=== PATIENT | male | born 1975 | race Caucasian/White ===

== ENCOUNTER 2022-04-26 22:31 | Emergency (ER) | payer BC ==
--- NOTE | 2022-04-26 22:55 | ERPHSYRPT ---
- History of Present Illness Time Seen by Provider: 04/26/22 22:49 Source: patient, family Exam Limitations: no limitations Physician History: pt reports that he passed out at daughters [place] in [place] earlier today and was worked up negative at that hospital and released. Now he notes fever and has had vomiting x1 He states he has had a cough with mild headache for days without change but noted fever this pm. and came in to be checked. He states he had a negative CXR at the other hospital. abd is soft and nontender without peritoneal signs or masses. has normal mental status. denies hitting head when he passed out earlier, and has not signs of injuries. nontender without ej stepoffs, full ROM entire spine and nontender. no pronator drift , fundi benign, visual red intact. Timing/Duration: today Fever Severity: moderate Fever Therapy FLORAL DECORATOR: none Associated Symptoms: cough, headache, nausea/vomiting Allergies/Adverse Reactions: No Known Drug Allergies Allergy (Verified 04/26/22 22:34) Home Medications: Albuterol 8 gm Mdi Hfa [Ventolin Hfa MDI] 2 puffs IH PRN 04/27/22 [ History] Amlodipine Besylate 10 mg PO DAILY 04/27/22 [History] Fluticasone/Umeclidin/Vilanter [Trelegy Ellipta 200-62.5-25] 1 puff .ROUTE DAILY 04/27/22 [History] Metoprolol Succinate 50 mg [Toprol Xl 50 MG] 50 mg PO DAILY 04/27/22 [History] Montelukast Sodium 10 mg [Singulair 10 MG] 10 mg PO DAILY 04/27/22 [History] Omalizumab [Xolair] 150 mg SQ 04/27/22 [History] Pravastatin Sodium 40 mg PO DAILY 04/27/22 [History] Sertraline HCl 50 mg [Zoloft 50 mg Tablet] 50 mg PO DAILY 04/27/22 [History] lisinopriL [Lisinopril] 20 mg PO DAILY 04/27/22 [History] Hx Tetanus, Diphtheria Vaccination/Date Given: No Hx Influenza Vaccination/Date Given: No Hx Pneumococcal Vaccination/Date Given: Yes (10 yrs ago) - Review of Systems Constitutional: Fever, No Chills Eyes: No Symptoms Ears, Nose, & Throat: No Symptoms, Nose Congestion, Sinus Drainage Respiratory: Cough, No Dyspnea Cardiac: No Chest Pain, No Edema, No Syncope Abdominal/Gastrointestinal: Nausea, Vomiting, No Abdominal Pain, No Diarrhea Genitourinary Symptoms: No Dysuria Musculoskeletal: No Back Pain, No Neck Pain, No Injury Skin: No Rash Neurological: Headache, No Dizziness, No Focal Weakness, No Sensory Changes Psychological: No Symptoms Endocrine: No Symptoms Hematologic/Lymphatic: No Symptoms Immunological/Allergic: No Symptoms All Other Systems: Reviewed and Negative - Past Medical History Pertinent Past Medical History: Yes Neurological History: No Pertinent History ENT History: No Pertinent History Cardiac History: No Pertinent History Respiratory History: Asthma, COPD, Sleep Apnea Endocrine Medical History: No Pertinent History Musculoskeletal History: No Pertinent History GI Medical History: No Pertinent History History: No Pertinent History Psycho-Social History: No Pertinent History Male Reproductive Disorders: No Pertinent History Other Medical History: sleep apnea - Past Surgical History Past Surgical History: Yes Neuro Surgical History: No Pertinent History Cardiac: No Pertinent History Respiratory: No Pertinent History Gastrointestinal: Hernia Repair Genitourinary: No Pertinent History Musculoskeletal: No Pertinent History Male Surgical History: No Pertinent History Other Surgical History: HERNIA - Social History Smoking Status: Never smoker Exposure to second hand smoke: No Drug Use: none Patient Lives Alone: No - Nursing Vital Signs Nursing Vital Signs: Initial Vital Signs Temperature 101.5 F 04/26/22 22:36 Pulse Rate 90 04/26/22 22:36 Respiratory Rate 14 04/26/22 22:36 Blood Pressure 143/81 04/26/22 22:36 O2 Sat by Pulse Oximetry 95 04/26/22 22:36 Pain Scale Pain Intensity 3 - Physical Exam General Appearance: no apparent distress, alert Eye Exam: PERRL/EOMI ENT Exam: normal ENT inspection, No pharyngeal erythema, No tonsillar exudate Neck Exam: supple, full range of motion, No meningismus Respiratory Exam: normal breath sounds, lungs clear, no respiratory distress Cardiovascular/Chest Exam: normal heart sounds, regular rate/rhythm, No murmur, No edema Gastrointestinal/Abdominal Exam: soft, non tender, no distention Rectal Exam: deferred Extremity Exam: non-tender, normal range of motion, normal inspection, normal capillary refill Neurologic Exam: alert, oriented x 3, cooperative, mold bunch trimmer II-XII nml as tested, normal mood/affect, sensation nml, No motor deficits Skin Exam: normal color, warm, dry, No rash SpO2 Interpretation: normal SpO2: 95 O2 Delivery: Room Air - Course Nursing assessment & vital signs reviewed: Yes EKG Interpreted by Me: Sinus Rhythm, NORMAL AXIS, NORMAL INTERVALS, NORMAL QRS Ordered Tests: Active Orders 24 hr Category Date Time Status Tile Mason STAT Care 04/26/22 22:59 Active EKG-ER Only STAT Care 04/26/22 22:58 Active IV Insertion STAT Care 04/26/22 22:58 Active Pulse Oximetry (ED) STAT Care 04/26/22 22:58 Active CBC W DIFF Stat Lab 04/26/22 23:02 Completed CMP Stat Lab 04/26/22 23:02 Completed Blanco Screen Stat Lab 04/26/22 23:02 Completed UA W/RFX CULTURE Stat Lab 04/26/22 Ordered Medication Summary Discontinued Medications Generic Name Dose Route Start Last Admin Trade Name Freq PRN Reason Stop Dose Admin Acetaminophen 650 mg 04/26/22 22:58 04/26/22 23:16 Acetaminophen 325 Mg Tablet PO 04/26/22 22:59 650 mg STAT STA Administration Acetaminophen Confirm 04/26/22 23:14 Acetaminophen 325 Mg Tablet Administered 04/26/22 23:15 Dose 650 mg .ROUTE .STK-MED ONE Sodium Chloride 1,000 mls @ 999 mls/hr 04/26/22 22:58 04/27/22 00:10 Sodium Chloride 0.9% 1000 Ml IV 04/26/22 23:58 Infused .Q1H1M STA Infusion Ceftriaxone Sodium/Dextrose 1 g in 50 mls @ 100 mls/hr 04/26/22 23:00 04/26/22 23:55 Rocephin 1 Gm-D5w 50 Ml Bag IV 04/26/22 23:29 Infused STAT STA Infusion Sodium Chloride Confirm 04/26/22 23:14 Sodium Chloride 0.9% 1000 Ml Administered 04/26/22 23:15 Dose 1,000 mls @ ud .ROUTE .STK-MED ONE Ceftriaxone Sodium/Dextrose Confirm 04/26/22 23:14 Rocephin 1 Gm-D5w 50 Ml Bag Administered 04/26/22 23:15 Dose 1 g in 50 mls @ ud IV .STK-MED ONE Ondansetron HCl 4 mg 04/26/22 22:58 04/26/22 23:16 Ondansetron Hcl 4 Mg/2 Ml Vial IV 04/26/22 22:59 4 mg STAT STA Administration Ondansetron HCl Confirm 04/26/22 23:14 Ondansetron Hcl 4 Mg/2 Ml Vial Administered 04/26/22 23:15 Dose 4 mg .ROUTE .STK-MED ONE Oseltamivir Phosphate 75 mg 04/27/22 00:48 Oseltamivir 75 Mg Cap PO 04/27/22 00:49 STAT ONE Lab/Rad Data: Laboratory Result Diagrams 04/26/22 23:02 04/26/22 23:02 Laboratory Results 04/26/22 04/26/22 04/26/22 Range/Units 23:26 23:26 23:02 WBC (4.0-10.5) x10^3/uL RBC (4.1-5.6) x10^6/uL Hgb (12.5-18.0) g/dL Hct (42-50) % MCV (78-100) fL MCH (26-32) pg MCHC (32-36) g/dL RDW (11.5-14.0) % Plt Count (150-450) x10^3/uL MPV (7.5-11.0) fL Gran % (36.0-66.0) % Immature Gran % (Auto) (0.00-0.4) % Nucleat RBC Rel Count (0.00-0.1) % Eos # (Auto) (0-0.5) x10^3/uL Immature Gran # (Auto) (0.00-0.03) x10^3u/L Absolute Lymphs (auto) (1.0-4.6) x10^3/uL Absolute Monos (auto) (0.0-1.3) x10^3/uL Absolute Nucleated RBC (0.00-0.01) x10^3u/L Lymphocytes % (24.0-44.0) % Monocytes % (0.0-12.0) % Eosinophils % (0.00-5.0) % Basophils % (0.0-0.4) % Absolute Granulocytes (1.4-6.9) x10^3/uL Basophils # (0-0.4) x10^3/uL Sodium (137-145) mmol/L Potassium (3.5-5.1) mmol/L Chloride (98-107) mmol/L Carbon Dioxide (22-30) mmol/L Anion Gap (5-15) MEQ/L BUN (9-20) mg/dL Creatinine (0.66-1.25) mg/dL Estimated GFR ML/MIN Glucose (74-106) mg/dL Calcium (8.4-10.2) mg/dL Total Bilirubin (0.2-1.3) mg/dL AST (17-59) U/L ALT (0-50) U/L Alkaline Phosphatase (38-126) U/L Serum Total Protein (6.3-8.2) g/dL Albumin (3.5-5.0) g/dL Monoscreen NEGATIVE (Negative) Influenza Type A Ag POSITIVE (NEGATIVE) Influenza Type B Ag NEGATIVE (NEGATIVE) RSV (PCR) NEGATIVE (Negative) SARS-CoV-2 (PCR) NEGATIVE (NEGATIVE) Group A Strep Antibody NOT DETECTED (NEGATIVE) Slides for Path Review 04/26/22 04/26/22 Range/Units 23:02 23:02 WBC 12.1 H (4.0-10.5) x10^3/uL RBC 4.43 (4.1-5.6) x10^6/uL Hgb 13.7 (12.5-18.0) g/dL Hct 40.3 L (42-50) % MCV 91.0 (78-100) fL MCH 30.9 (26-32) pg MCHC 34.0 (32-36) g/dL RDW 11.6 (11.5-14.0) % Plt Count 297 (150-450) x10^3/uL MPV 9.4 (7.5-11.0) fL Gran % 86.7 H (36.0-66.0) % Immature Gran % (Auto) 0.9 H (0.00-0.4) % Nucleat RBC Rel Count 0.0 (0.00-0.1) % Eos # (Auto) 0 (0-0.5) x10^3/uL Immature Gran # (Auto) 0.11 H (0.00-0.03) x10^3u/L Absolute Lymphs (auto) 0.42 L (1.0-4.6) x10^3/uL Absolute Monos (auto) 1.05 (0.0-1.3) x10^3/uL Absolute Nucleated RBC 0.00 (0.00-0.01) x10^3u/L Lymphocytes % 3.5 L (24.0-44.0) % Monocytes % 8.7 (0.0-12.0) % Eosinophils % 0.0 (0.00-5.0) % Basophils % 0.2 (0.0-0.4) % Absolute Granulocytes 10.46 H (1.4-6.9) x10^3/uL Basophils # 0.02 (0-0.4) x10^3/uL Sodium 134 L (137-145) mmol/L Potassium 3.7 (3.5-5.1) mmol/L Chloride 100 (98-107) mmol/L Carbon Dioxide 25 (22-30) mmol/L Anion Gap 13.6 (5-15) MEQ/L BUN 12 (9-20) mg/dL Creatinine 0.82 (0.66-1.25) mg/dL Estimated GFR > 60.0 ML/MIN Glucose 150 H (74-106) mg/dL Calcium 8.8 (8.4-10.2) mg/dL Total Bilirubin 0.80 (0.2-1.3) mg/dL AST 40 (17-59) U/L ALT 42 (0-50) U/L Alkaline Phosphatase 98 (38-126) U/L Serum Total Protein 8.0 (6.3-8.2) g/dL Albumin 4.5 (3.5-5.0) g/dL Monoscreen (Negative) Influenza Type A Ag (NEGATIVE) Influenza Type B Ag (NEGATIVE) RSV (PCR) (Negative) SARS-CoV-2 (PCR) (NEGATIVE) Group A Strep Antibody (NEGATIVE) Slides for Path Review YES - Progress Progress: improved, re-examined Progress Note: 04/27/22 00:51 [facility] reviewed and had neg w/u for syncope including head CT, and was diagnosed with cough syncope as his episode happened with a coughing spell. pt feels much better after tx in ER, and wishes to go home on outpt tx of his flu and resp secondary infection. We discussed the possibility of additional undetected pathology still evolving including cardiac , traumatic, or respiratory or other, and he and are comfortable with this plan and have the capacity to make this choice for outpt tx and are aware things may evolve. They will return or be evaluated if not improving or more symptoms present. 04/27/22 00:56 Counseled pt/family regarding: lab results, diagnosis, need for follow-up, rad results - Departure Departure Disposition: Home Clinical Impression: Influenza A, secondary respiratory infection Condition: Good Critical Care Time: No Referrals: SASHA MALLORY MD [Primary Care Provider] - Follow up/PCP as directed Instructions: Fever, Adult (DC), Flu, Adult (DC), Acute Bronchitis Additional Instructions: follow-up with your Dr this week for recheck, and return meantime if any further symptoms of concern, not improving, short of breaeth, chest pain, dizziness , further vomiting or other concerns. This is important because the flu could get worse of have complications, or there could even be additional undetected conditions even though the findings and tests are most consistent with the flu. We are also treating for secondary bacterial respiratory infection. Prescriptions: Azithromycin [Azithromycin 250 mg Pack] 250 mg PO UD #6 tablet
[2022-04-26] MEDS ORDERED: TYLENOL 325 MG PO STA (22:58)
[2022-04-26] MEDS ORDERED: Zofran 4 MG/2 ML VIAL IV STA (22:58)
[2022-04-26] MEDS ORDERED: Sodium Chloride 0.9% 1000 ML 1,000 ML IV STA (22:58)
[2022-04-26] MEDS ORDERED: ROCEPHIN 1 Gm-D5w 50 ml Bag** 1 G/50 ML IVPB IV STA (23:00)
[2022-04-26 23:04] LABS: Absolute Neutrophil Ct (ANC) 10.46 x10^3/uL (1.4-6.9); Basophil (Absolute #) 0.02 x10^3/uL (0-0.4); Eosinophil (Absolute #) 0 x10^3/uL (0-0.5); Hematocrit 40.3 % (42-50); Hemoglobin 13.7 g/dL (12.5-18.0); Lymphocyte (Absolute #) 0.42 x10^3/uL (1.0-4.6); Lymphocytes % 3.5 % (24.0-44.0); Mean Corpuscular Hemoglobin 30.9 pg (26-32); Mean Platelet Volume 9.4 fL (7.5-11.0); Monocyte (Absolute #) 1.05 x10^3/uL (0.0-1.3); Monocytes % 8.7 % (0.0-12.0); Neutrophil % 86.7 % (36.0-66.0); Platelet Count 297 x10^3/uL (150-450); Red Blood Count 4.43 x10^6/uL (4.1-5.6); Red Cell Distribution Width 11.6 % (11.5-14.0); White Blood Count 12.1 x10^3/uL (4.0-10.5)
[2022-04-26 23:11] LABS: ALBUMIN 4.5 g/dL (3.5-5.0); ALKALINE PHOSPHATASE 98 U/L (38-126); ANION GAP 13.6 MEQ/L (5-15); BLOOD UREA NITROGEN 12 mg/dL (9-20); CHLORIDE 100 mmol/L (98-107); Calcium 8.8 mg/dL (8.4-10.2); Carbon Dioxide 25 mmol/L (22-30); Creatinine 1 0.82 mg/dL (0.66-1.25); EST GLOMERULAR FILTRATION RATE > 60.0 ML/MIN; Glucose 150 mg/dL (74-106); Potassium 3.7 mmol/L (3.5-5.1); SGOT/AST 40 U/L (17-59); SGPT/ALT 42 U/L (0-50); SODIUM 134 mmol/L (137-145)
[2022-04-26] MEDS ORDERED: TYLENOL 325 MG ONE (23:14)
[2022-04-26] MEDS ORDERED: Zofran 4 MG/2 ML VIAL ONE (23:14)
[2022-04-26] MEDS ORDERED: Sodium Chloride 0.9% 1000 ML 1,000 ML ONE (23:14)
[2022-04-26] MEDS ORDERED: ROCEPHIN 1 Gm-D5w 50 ml Bag** 1 G/50 ML IVPB IV ONE (23:14)
[2022-04-27 00:04] LABS: INFLUENZA B NEGATIVE (NEGATIVE); RESPIRATORY SYNCTIAL VIRUS NEGATIVE (Negative); SARS-CoV-2 Xpert Express NEGATIVE (NEGATIVE)
[2022-04-27 00:07] LABS: INFLUENZA A POSITIVE (NEGATIVE)
[2022-04-27 00:48] LABS: Slide Review 1 YES
[2022-04-27] MEDS ORDERED: Tamiflu 75MG Capsule PO ONE ×2 (00:48→00:52)
[2022-04-27 00:56] VITALS: O2SAT 95
[2022-04-27 01:05] VITALS: BP 90/59; PULSE 88
== END 2022-04-27 01:16 | disposition home or self-care (01) ==
LOC: ED 22:31
DX: J10.1 Influenza due to other identified influenza virus with other respiratory manifestations (principal); J98.8 Other specified respiratory disorders; R55 Syncope and collapse; R50.9 Fever, unspecified; R11.2 Nausea with vomiting, unspecified; R05.9 Cough, unspecified; R51.9 Headache, unspecified; J44.9 Chronic obstructive pulmonary disease, unspecified; Z79.899 Other long term (current) drug therapy
CPT/HCPCS: 0241U; 36000; 36415; 80053; 85025; 86308; 87651; 93005; 93041; 94760; 96360; 96365; 96374; 99284; J0696; J2405; A9270-GY

== ENCOUNTER 2024-09-19 10:53 | Day surgery (SDC) | payer BC ==
--- NOTE | 2024-09-19 07:38 | HP ---
HISTORY AND PHYSICAL HISTORY OF PRESENT ILLNESS: Patient with some right upper quadrant pain. Ultrasound showed cholelithiasis. PAST MEDICAL HISTORY: Hypertension, hyperlipidemia, depression, asthma. HOME MEDICATIONS: Xolair, also on lisinopril, pravastatin, amlodipine, Singulair, metoprolol, sertraline, ProAir RespiClick as well as Trelegy Ellipta. ALLERGIES: No known drug allergies. PAST SURGICAL HISTORY: Right inguinal hernia repair. SOCIAL HISTORY: No smoking. Occasional alcohol use. FAMILY HISTORY: Diabetes. REVIEW OF SYSTEMS: Twelve systems reviewed. Pertinent for all the above as mentioned Past Medical History and History of Present Illness. No current chest pain or palpitations. Other systems negative or noncontributory as above and per preadmission questionnaire. PHYSICAL EXAMINATION: GENERAL: Height 6 feet 1 inch. BMI 39.58. No acute distress. HEENT: Sclerae anicteric. Extraocular movements are intact. NECK: No JVD. CARDIOVASCULAR: Regular rate and rhythm. RESPIRATORY: Equal excursion. Nonlabored breathing. ABDOMEN: Soft. SKIN: Dry. EXTREMITIES: No cyanosis or edema. NEUROLOGIC: Alert and oriented. Moving all extremities symmetrically. PSYCHIATRIC: Appropriate mood and affect. IMPRESSION: Acute exacerbation of chronic cholecystitis, symptomatic cholelithiasis. Recommend cholecystectomy. Risks explained in detail including bleeding; infection; risk of trocar injury or hernia; risk of bile leak, bile duct injury, retained stone or sludge possibly requiring further procedure, either ERCP or open procedure; risk of anesthesia, DVT, PE, pneumonia; risk of aches, pains, bloating, constipation, and/or loose stools possibly chronic in nature; possible no improvement in preop symptoms, possible requiring further workup or studies or endoscopy or referrals. Will proceed with laparoscopic cholecystectomy, possible open, as an outpatient. Otherwise, continue medications for hypertension, depression, asthma, and hyperlipidemia
[2024-09-19] MEDS: Lactated Ringers 1,000 ML IV SCH (10:58)
[2024-09-19] MEDS: celeBREX 100 MG PO ONE (10:58)
[2024-09-19] MEDS: Decadron 4 MG PO ONE (10:59)
[2024-09-19] MEDS: TYLENOL EXTRA STRENGTH 500 MG PO ONE (10:59)
[2024-09-19] MEDS: NEURONTIN PO ONE (10:59)
[2024-09-19] MEDS: CEFOXITIN 2 GM/100 ML NACL IVPB 2 GM/100 ML IVPB IV ONE (10:59)
[2024-09-19 11:39] LABS: Absolute Neutrophil Ct (ANC) 4.52 x10^3/uL (1.78-5.38); BASOPHIL % 0.5 % (0.2-1.2); Basophil (Absolute #) 0.04 x10^3/uL (0.01-0.08); Eosinophil % 1.4 % (0.8-7.0); Hematocrit 39.5 % (40.1-51.0); Hemoglobin 13.9 g/dL (13.7-17.5); IMMATURE GRAN # 0.04 x10^3u/L (0.001-0.031); IMMATURE GRAN % 0.5 % (0.001-0.429); Lymphocyte (Absolute #) 2.18 x10^3/uL (1.32-3.57); Lymphocytes % 29.6 % (21.8-53.1); Mean Corpuscular Hemoglobin 31.7 pg (25.7-32.2); Mean Corpuscular Hgb Concent. 35.2 g/dL (32.3-36.5); Mean Platelet Volume 9.5 fL (9.4-12.4); Monocyte (Absolute #) 0.49 x10^3/uL (0.30-0.82); Monocytes % 6.6 % (5.3-12.2); Neutrophil % 61.4 % (34.0-67.9); Platelet Count 257 x10^3/uL (163-337); Red Blood Count 4.39 x10^6/uL (4.63-6.08); Red Cell Distribution Width 11.5 % (11.6-14.4); White Blood Count 7.4 x10^3/uL (4.23-9.07)
[2024-09-19 11:52] LABS: Calcium 8.7 mg/dL (8.4-10.2); Creatinine 1 0.74 mg/dL (0.66-1.25); EST GLOMERULAR FILTRATION RATE 111.8 ML/MIN; Potassium 4.1 mmol/L (3.5-5.1)
[2024-09-19] MEDS ORDERED: Xylocaine-Mpf 2% 5 Ml Vial ONE (12:43)
[2024-09-19] MEDS ORDERED: ROCURONIUM BROMIDE IV ONE (12:43)
[2024-09-19] MEDS ORDERED: Zofran 4 MG/2 ML VIAL ONE (12:43)
[2024-09-19] MEDS ORDERED: DEXMEDETOMIDINE 80 MCG/20ML-NS IV ONE (12:43)
[2024-09-19] MEDS ORDERED: BRIDION 200MG/2ML IV ONE (12:43)
[2024-09-19] MEDS ORDERED: propofoL IV ONE (12:44)
[2024-09-19] MEDS ORDERED: Versed 2 MG/2 ML Injection ONE (12:44)
[2024-09-19] MEDS ORDERED: SUBLIMAZE 100 MCG/2 ML ONE ×2 (12:45→15:16)
[2024-09-19] MEDS ORDERED: Pre-Attached Lta Kit TP ONE (12:46)
[2024-09-19] MEDS ORDERED: Sensorcaine 0.25% 10 ML ONE (13:24)
[2024-09-19] MEDS ORDERED: ROBINUL ONE (13:33)
[2024-09-19] MEDS ORDERED: ATROPINE SULFATE 1MG ONE (13:33)
[2024-09-19] MEDS ORDERED: Ephedrine Sulfate 50 MG/ML ONE (13:34)
[2024-09-19] MEDS ORDERED: PHENYLEPHRINE HCL ONE (13:39)
[2024-09-19] MEDS ORDERED: Reglan 10 MG/2 ML ONE (13:49)
[2024-09-19] MEDS ORDERED: Lactated Ringers 1,000 ML IV ONE (14:01)
[2024-09-19] MEDS ORDERED: DILAUDID 0.5 MG/0.5 ML SYRINGE ONE (15:16)
[2024-09-19 15:51] VITALS: PULSE 66
[2024-09-19 16:01] VITALS: BP 109/57; RESP 16; TEMP 98.2; O2SAT 100
--- NOTE | 2024-09-20 10:06 | OP ---
SURGERY DATE/TIME: 09/19/2024 [id number] PREOPERATIVE DIAGNOSES: Acute exacerbation of chronic cholecystitis and cholelithiasis. POSTOPERATIVE DIAGNOSES: Acute exacerbation of chronic cholecystitis and cholelithiasis. PROCEDURE: Laparoscopic cholecystectomy. SURGEON: Alpesh Hilario MD. ANESTHESIA: General. ESTIMATED BLOOD LOSS: Minimal. INDICATIONS: As noted above, consent was obtained. DESCRIPTION OF PROCEDURE AND FINDINGS: The patient was taken to the operating room. General anesthesia was induced. He was prepped and draped in the usual sterile fashion. After official time-out, no disagreement in planned procedure. A transverse incision was made at the supraumbilical area. Fascia grasped and pulled upward. Veress needle inserted. Tested with saline. Pneumoperitoneum accomplished with an opening pressure of 0 to 15. A 5 mm bladeless port and camera inserted without difficulty, followed by two 5 mm right upper quadrant ports and 11 mm in epigastric port. There was a little small amount of blood that dripped down from the Veress and port placement site in the supraumbilical area, but there was no evidence of any anterior abdominal injury secondary to the trocar insertion or Veress needle placement. At this point, the patient was positioned left reverse Trendelenburg. Gallbladder had omentum stuck over the top of it. These adhesions were taken down in posterolateral to anterior fashion. Dissection was carried posterolateral to anterior fashion, slowly and carefully skeletonized the main cystic artery and cystic duct until the critical view was obtained both anteriorly and posteriorly. Once this was accomplished, the cystic duct/cystic artery clipped x3 and divided in the usual fashion. The gallbladder was slowly and carefully dissected free from its dense attachments to the liver bed staying directly on the gallbladder wall. Clipping additional oozing side branches as well as cystic artery and vein directly along the gallbladder wall as necessary. The gallbladder was released from its final attachments to the anterior edge of the liver. One of the graspers tore a small pinhole, spilling a small amount of bile. There was no evidence of any stone spillage. Suction and social studies teacher was inserted and decompressed the gallbladder. I then continued dissecting the gallbladder, staying directly on the gallbladder wall, dissecting away from the dense attachment to the liver bed. Just prior to releasing the final attachments to the anterior edge of the liver, the liver bed reinspected. Clips noted to be in placed on the cystic duct/cystic artery. No signs of active bleeding or leakage. It was felt there was no benefit for drain placement. Gallbladder released from its final attachments to the liver, placed in the provided sack, pulled up into the epigastric wound where it was enlarged with a clamp, allowing the bag and gallbladder to be pulled free and passed off. This fascial defect was closed with puncture closure of #1 Vicryl. Copious amount of irrigation was accomplished lateral to the liver and subhepatic space was irrigated clear. Liver was reinspected and clips noted to be in place. Suction and irrigation of stump showed no signs of anterior bleeding or bile leakage. It was felt there was no benefit for drain placement. At this point, pneumoperitoneum decompressed. Wounds irrigated out. Findings were discussed with the family out in the waiting area. Skin incisions closed with 4-0 Vicryl. Steri-Strips were applied. The patient will be transferred to Recovery in stable condition. There were no immediate complications. We will see him back in the office next week.
== END 2024-09-19 16:16 | disposition home or self-care (01) ==
LOC: SDC 10:53
PROVIDERS: ATTEND Surgery
DX: K80.10 Calculus of gallbladder with chronic cholecystitis without obstruction (principal); I10 Essential (primary) hypertension
CPT/HCPCS: 36415; 80048; 85025; 93005; J0461; J0694; J1171; J2250; J2371; J2405; J2704; J3010; A9270-GY